=== PATIENT | female | born 1950 | race Caucasian/White ===

== ENCOUNTER 2025-02-23 09:51 | Outpatient (AMB) | payer MEDICARE, SELFPAY ==
--- NOTE | 2025-02-23 09:47 | A.OFFPC_ITS ---
Vital Signs 02/23/25 09:55 Height 5 ft 5.2 in Weight 185 lb 2 oz BMI 30.6 BP 152/84 H Blood Pressure Location Rt brachial Position Sitting Respiration 20 Pulse 59 Pulse Source Pulse Oximeter Temp 96.9 F Temp Source Temporal Artery Scan Pulse Oximetry (%) 97 Oxygen Delivery Method Room Air Intake Visit Reasons: Establish Care Labor Specialist Required: No Accompanied by: Self / Same As Patient Allergies No Known Allergies Allergy (Verified 02/23/25 12:46) Medication List - Last Reconciled 02/23/25 by Shahla Cabral PA-C aspirin 81 mg PO DAILY atorvastatin (Lipitor) 20 mg PO BEDTIME famotidine (Acid Controller) 20 mg PO BID fluoxetine 60 mg PO DAILY hydrochlorothiazide 25 mg PO QAM metformin 250 mg PO BID rivaroxaban (Xarelto) 20 mg PO DAILY Tobacco use date assessed: 02/23/25 Fall risk assessment: No Falls in past year Last assessed Fall Risk: 02/23/25 Dental Screening Dental Screen Date: 02/23/25 Did you have a dental visit in the last 12 months?: Yes Was dental information given to patient?: Patient has dentist HPI Establish Care HPI Details The patient is a 74-year-old female presenting for a new patient appointment, annual physical exam and in addition management of multiple chronic conditions. The patient has a history of deep vein thrombosis (DVT) in the left leg, diagnosed after experiencing left leg swelling. 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 She underwent placement of an inferior vena cava filter, percutaneous mechanical thrombectomy, angioplasty, and stenting of the left common and external iliac vein, and was placed on Xarelto for anticoagulation. The patient reports chronic venous insufficiency in the right lower leg, with no evidence of DVT in the right leg, but superficial reflux was noted in the left leg. She uses knee-high compression stockings for swelling management. The patient has a history of hypertension, hyperlipidemia, and type 2 diabetes mellitus, managed with medications including hydrochlorothiazide, atorvastatin, and metformin. She expresses a desire to discontinue metformin, as her recent A1c was 6.4, indicating prediabetes status while on medication. The patient has iron deficiency anemia, requiring previous blood transfusions and iron infusions. She is scheduled for follow-up with hematology to investigate the cause of her anemia. A heart murmur was detected during the physical examination, and an echocardiogram is planned to further evaluate this finding. Social History - Housing: Lives with her 92-year-old au nt. - Substance Use: Former smoker, quit 25 years ago. PFSH Medical History Iron deficiency anemia Type 2 diabetes mellitus with hemoglobin A1c goal of less than 7.0% Hyperlipidemia Hypertension Chronic venous insufficiency May-Thurner syndrome Pulmonary embolism DVT (deep venous thrombosis) Annual physical exam Heart murmur Smoking history Surgical History History of colonoscopy (~09/23/24) Family History Father Cerebral brain hemorrhage Mother Lung cancer Social History Housing: Other Housing Other:: MOBILE HOME Patient Tobacco Use Status: Former Tobacco user service: No Current occupational status: employed and retired Cognitive needs: No Hearing needs: No Vision needs: Yes (RX glasses) Questionnaire PHQ-9 Over the last 2 weeks, how often have you been bothered by any of the following problems? 1. Little interest or pleasure in doing things: not at all 2. Feeling down, depressed, or hopeless: not at all 3. Trouble falling or staying asleep, or sleeping too much: not at all 4. Feeling tired or having little energy: not at all 5. Poor appetite or overeating: not at all 6. Feeling bad about yourself - or that you are a failure or have let yourself or your family down: not at all 7. Trouble concentrating on things, such as reading the newspaper or watching television: not at all 8. Moving or speaking so slowly that other people could have noticed. Or the opposite - being so fidgety or restless that you have been moving around a lot more than usual: not at all 9. Thoughts that you would be better off or of hurting yourself in some way: not at all Total score: 0 Depression Screening Interpretation: Negative Depression Screening Done: Yes 73869 - PHQ-9 Billing: Yes Source: Developed by Drs. James Mattson, Kat Celso Naranjo and colleagues, with an educational cal from [employer]. Thrive Questionnaire Date Thrive assessed: 02/23/25 I am a: Patient What is your living situation today?: I have a steady place to live Within the past 12 months, did the food you bought not last and you didn't have the money to get more?: Never true Within the past 12 months, did you worry whether your food would run out before you got money to buy more?: Never true Do you have trouble paying for medicines?: No Do you have trouble getting transportation to medical appointments?: No Do you have trouble paying your heating and electricity bill?: No Do you have trouble taking care of your child, family member or friend?: No Do you have trouble with day-to-day activities such as bathing, preparing meals, shopping, managing finances, etc.?: No Are you currently unemployed and looking for a job?: No Are you interested in more education?: No Please select the resources that you would like help with: None THRIVE Score: 0 AUDIT C Alcohol Use Questionnaire (AUDIT-C) 1. How often do you have a drink containing alcohol?: Never Total Score: 0 Score Reviewed/Action Taken: No PANFILO-7 AMB Questionnaire PANFILO-7 Date PANFILO - 7 assessed: 02/23/25 Feeling nervous, anxious, or on edge: 0 = Not at all Not being able to stop or control worryin = Not at all Worrying too much about different things: 0 = Not at all Trouble relaxin = Not at all Being so restless that it is hard to sit still: 0 = Not at all Becoming easily annoyed or irritable: 0 = Not at all Feeling afraid as if something awful might happen: 0 = Not at all Total PANFILO-7 score (0-4 normal; 5-9 mild; 10-14 moderate; 15-21 severe): 0 Source: Developed by Drs. James Mattson, Celso Schmidt and colleagues, with an educational cal from [employer]. PANFILO-7 Assessment Billing PANFILO-7 Assessment Tool: PANFILO-7 Assessment 09430 Review of Systems Const Details: - Cardiovascular: Reports fainting episodes while walking the dog. Denies chest pain or palpitations. - Musculoskeletal: Reports left leg swelling. Denies right leg swelling or pain. - Neurological: Denies headaches, dizziness, or balance issues. - Gastrointestinal: Denies abdominal pain or changes in bowel habits. - Genitourinary: Denies hematuria or dysuria. All systems reviewed & are unremarkable except as noted in HPI and below Physical exam (Primary Care) Vital Signs: Last Vital Signs Temp 96.9 F 02/23/25 09:55 Pulse 59 02/23/25 09:55 Resp 20 02/23/25 09:55 BP 152/84 H 02/23/25 09:55 Pulse Ox 97 02/23/25 09:55 Oxygen Delivery Method Room Air 02/23/25 09:55 Care Plan Goal for BP management: 140/90 PATIENT TO CONTINUE HYDROCHLOROTHIAZIDE 25 MG DAILY SHE WILL CONTINUE TO MONITOR HER BLOOD PRESSURE AND RETURN IN 1 MONTH FOR BLOOD PRESSURE CHECK BMI result Body Mass Index 30.6 BMI Assessment/Plan discussion: High BMI High, discussed plan: lifestyle, weight reduction, dietary, physical activity, alcohol moderation and other Tobacco/Smoking Status: Tobacco use Status Tobacco use date assessed 02/23/25 02/23/25 10:08 Patient Tobacco Use Status Former Tobacco user 02/23/25 10:08 PHQ-9: PHQ-9 Score PHQ-9: Total score 0 02/23/25 10:31 Depression Screening Interpretation: Negative Thrive Assessment: Date of Thrive Assessment Date Thrive assessed 02/23/25 02/23/25 10:08 Const Other: Appearance: Alert. Oriented X3. No acute distress. Head: Normal external exam. Normocephalic. Atraumatic. Eyes: Pupils are equal, round, and reactive to light. Extraocular movements intact. Conjunctiva and sclera normal. Eyelids normal. Ears: External auditory canal normal. Tympanic membranes normal. Throat: Pharynx normal. Uvula midline. Moist mucous membranes. Neck: Normal inspection. Neck supple. Full range of motion. No adenopathy. Thyroid Normal. No meningeal signs. No neck mass noted. Cardiovascular: Normal heart rate and rhythm. Heart sound normal. A little murmur noted. Pulses normal throughout. Respiratory: No respiratory distress. Painless inspiration. Breath sounds normal. No wheezes/rales/rhonchi noted. Chest nontender. No accessory muscle usage noted or decreased air movement noted. Abdomen: Soft and nontender. Bowel sounds normal in all 4 quadrants. No distention noted. No organomegaly noted. No visible injury noted. Back: No costovertebral angle tenderness. Full range of motion noted. Skin: Skin warm and dry. Normal skin color. Normal skin turgor. No rashes/lesions/lacerations noted. Extremities: No lower extremity edema. Extremities exhibit normal range of motion. Extremities nontender. Neuro: Oriented X 3. No motor deficit. No sensory deficit. Reflexes normal. Office Procedures Flu Questionnaire Does the patient have a severe egg allergy?: No Does the patient have severe life threatening allergies?: No Does the patient have a fever or illness today?: No Has the patient ever had Guillain-Greenwood Syndrome?: No Has the patient ever had any past reaction to a flu shot?: No Results AMB Hemoglobin A1c AMB Hemoglobin A1c 6.4 % Last Edit by Nellie Aburto CMA on 02/23/25 10:3 2 Immunizations Fluarix [id number] (PF) 45 mcg (15 mcg x 3)/0.5 mL IM syringe Performing Provider: Shahla Cabral PA-C Performing [facility] [place] [facility] Administered by: Nellie Aburto CMA on 02/23/25 10:14 Dose Route Admin Location Dispensed Lot Number Expiration Date 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 - Imaging: Ultrasound of the right leg showed no evidence of DVT. - Imaging: Left leg ultrasound showed superficial reflux and chronic DVT within the popliteal vein. Coding Level of Care Code New Pt Level 4 (24149) New Pt Prev Care >65yr (56749) Diagnoses Annual physical exam Z00.00 DVT (deep venous thrombosis) I82.409 Pulmonary embolism I26.99 May-Thurner syndrome I87.1 Chronic venous insufficiency I87.2 Hypertension I10 Hyperlipidemia E78.5 Type 2 diabetes mellitus with hemoglobin A1c goal of less than 7.0% E11.9 Iron deficiency anemia D50.9 Heart murmur R01.1 Additional Codes PHQ-9 - 49931 - PHQ-9 Billing: Yes ([id number]) PANFILO-7 Assessment Billing - PANFILO-7 Assessment Tool: PANFILO-7 Assessment 79084 ([id number]) Time Spent (min) 60 Assessment & Plan Assessment & Plan (1) Annual physical exam: Code(s): Z00.00 - Encounter for general adult medical examination without abnormal findings Category: Medical (2) DVT (deep venous thrombosis): Code(s): I82.409 - Acute embolism and thrombosis of unspecified deep veins of unspecified lower extremity Category: Medical Plan: The patient will continue anticoagulation therapy with Xarelto for at least six months. An IVC filter placement scan is ordered, and follow-up with hematology is scheduled to discuss possible filter removal. (3) Pulmonary embolism: Code(s): I26.99 - Other pulmonary embolism without acute cor pulmonale Category: Medical Plan: The patient is on Xarelto for anticoagulation to manage the pulmonary embolism. Continued monitoring and follow-up with hematology are planned. (4) May-Thurner syndrome: Code(s): I87.1 - Compression of vein Category: Medical Plan: The patient underwent angioplasty and stenting of the left common and external iliac vein. Follow-up care includes monitoring for any recurrence of symptoms and continued use of compression stockings. (5) Chronic venous insufficiency: Code(s): I87.2 - Venous insufficiency (chronic) (peripheral) Category: Medical Plan: The patient is advised to continue using knee-high compression stockings to manage swelling. Regular follow-up is recommended to monitor the condition. (6) Hypertension: Code(s): I10 - Essential (primary) hypertension Category: Medical Plan: The patient will continue on hydrochlorothiazide for blood pressure management. Regular monitoring of blood pressure is advised. (7) Hyperlipidemia: Code(s): E78.5 - Hyperlipidemia, unspecified Category: Medical Plan: The patient is advised to continue atorvastatin for cholesterol management. A discussion with a adjunct psychology faculty member is planned to consider alternative treatments such as Zetia or injectable therapies. (8) Type 2 diabetes mellitus with hemoglobin A1c goal of less than 7.0%: Code(s): E11.9 - Type 2 diabetes mellitus without complications Category: Medical Plan: The patient is advised to reduce metformin to 250 mg daily and monitor blood glucose levels. A follow-up in three months is planned to reassess the need for medication. (9) Iron deficiency anemia: Code(s): D50.9 - Iron deficiency anemia, unspecified Category: Medical Plan: The patient is scheduled for follow-up with hematology to investigate the cause of anemia. Iron supplementation and monitoring of hemoglobin levels are recommended. (10) Heart murmur: Code(s): R01.1 - Cardiac murmur, unspecified Category: Medical Plan: An echocardiogram is planned to evaluate the heart murmur further. The patient is advised to monitor for any new symptoms and report them promptly. Plan Plan Patient was informed and verbally consented to the use of an ambient scribe for clinic note documentation during this visit. 1. Deep Vein Thrombosis (Dvt) The patient will continue anticoagulation therapy with Xarelto for at least six months. An IVC filter placement scan is ordered, and follow-up with hematology is scheduled to discuss possible filter removal. 2. Pulmonary Embolism The patient is on Xarelto for anticoagulation to manage the pulmonary embolism. Continued monitoring and follow-up with hematology are planned. 3. May-Thurner Syndrome The patient underwent angioplasty and stenting of the left common and external iliac vein. Follow-up care includes monitoring for any recurrence of symptoms and continued use of compression stockings. 4. Chronic Venous Insufficiency The patient is advised to continue using knee-high compression stockings to manage swelling. Regular follow-up is recommended to monitor the condition. 5. Hypertension The patient will continue on hydrochlorothiazide for blood pressure management. Regular monitoring of blood pressure is advised. 6. Hyperlipidemia The patient is advised to continue atorvastatin for cholesterol management. A discussion with a adjunct psychology faculty member is planned to consider alternative treatments suc h as Zetia or injectable therapies. 7. Type 2 Diabetes Mellitus The patient is advised to reduce metformin to 250 mg daily and monitor blood glucose levels. A follow-up in three months is planned to reassess the need for medication. 8. Iron Deficiency Anemia The patient is scheduled for follow-up with hematology to investigate the cause of anemia. Iron supplementation and monitoring of hemoglobin levels are recommended. 9. Heart Murmur An echocardiogram is planned to evaluate the heart murmur further. The patient is advised to monitor for any new symptoms and report them promptly. During the visit, I discussed with the patient the management of her deep vein thrombosis and pulmonary embolism, emphasizing the importance of continuing Xarelto for anticoagulation. We reviewed the need for an IVC filter placement scan and the potential for filter removal in the future. I explained the role of compression stockings in managing chronic venous insufficiency and the importance of regular follow-up. We also discussed her hypertension and hyperlipidemia management, including the possibility of alternative treatments for cholesterol. I advised on reducing metformin dosage and monitoring her blood glucose levels, with a follow-up planned in three months. We addressed her iron deficiency anemia, scheduling a hematology follow-up to explore the underlying cause. Lastly, I recommended an echocardiogram to evaluate the detected heart murmur and advised her to report any new symptoms. Orders: Orders C Reactive Protein Today Z00.00 - Encounter for general adult medical examination without abnormal findings Complete Blood Count Auto Diff Today Z00.00 - Encounter for general adult medical examination without abnormal findings Ferritin Today D64.9 - Anemia, unspecified Liver Panel Today Z00.00 - Encounter for general adult medical examination without abnormal findings Magnesium Today Z00.00 - Encounter for general adult medical examination without abnormal findings Lipid Panel Today Z00.00 - Encounter for general adult medical examination without abnormal findings Vitamin B12 and Folate Today Z00.00 - Encounter for general adult medical examination without abnormal findings Vitamin D 25-OH Total Today Z00.00 - Encounter for general adult medical examination without abnormal findings UA CC w/rflx Micro + Cult Today Z00.00 - Encounter for general adult medical examination without abnormal findings TSH reflex Free T4 Today Z00.00 - Encounter for general adult medical examination without abnormal findings CA echo transthoracic complete Today R01.1 - Cardiac murmur, unspecified Influenza [id number] Immunization Today Z23 - Encounter for immunization AMB Hemoglobin A1c Today Z13.9 - Encounter for screening, unspecified Comprehensive Wright. Panel Fast Today Z00.00 - Encounter for general adult medical examination without abnormal findings IRON PROFILE Today D64.9 - Anemia, unspecified XR DEXA axial skeleton Today M81.0 - Age-related osteoporosis without current pathological fracture Referrals Lung Cancer Screening Referral Z87.891 - Personal history of nicotine dependence Patient Instructions: - Continue taking Xarelto as prescribed for anticoagulation. - Use knee-high compression stockings to manage leg swelling. - Monitor blood pressure regularly and report any significant changes. - Reduce metformin to 250 mg daily and monitor blood glucose levels. - Schedule and attend follow-up appointments with hematology and cardiology as advised. - Report any new symptoms, especially related to heart or leg issues, promptly.
[2025-02-23 09:55] VITALS: BP 152/84; PULSE 59; RESP 20; TEMP 36.1; O2SAT 97; BMI 30.6
== END 2025-02-23 10:48 | disposition home or self-care (01) ==
LOC: HO.HMCSH 09:51
PROVIDERS: PCP Physician Assistant Medical; Visit Provider Physician Assistant Medical
DX: Z00.00 Encounter for general adult medical examination without abnormal findings (principal); R01.1 Cardiac murmur, unspecified; I82.409 Acute embolism and thrombosis of unspecified deep veins of unspecified lower extremity; I26.99 Other pulmonary embolism without acute cor pulmonale; E11.69 Type 2 diabetes mellitus with other specified complication; I10 Essential (primary) hypertension; I87.1 Compression of vein; I87.2 Venous insufficiency (chronic) (peripheral); E78.5 Hyperlipidemia, unspecified; D50.9 Iron deficiency anemia, unspecified; Z23 Encounter for immunization

== ENCOUNTER → 2025-02-23 09:51 | Outpatient (BNVA) | payer MEDICARE, SELFPAY | PROVIDERS: PCP Physician Assistant Medical; Visit Provider Physician Assistant Medical | DX: Z00.00 Encounter for general adult medical examination without abnormal findings (principal); I87.2 Venous insufficiency (chronic) (peripheral); I10 Essential (primary) hypertension; E78.5 Hyperlipidemia, unspecified; E11.9 Type 2 diabetes mellitus without complications; D50.9 Iron deficiency anemia, unspecified; R01.1 Cardiac murmur, unspecified; I82.409 Acute embolism and thrombosis of unspecified deep veins of unspecified lower extremity; M81.0 Age-related osteoporosis without current pathological fracture; I26.99 Other pulmonary embolism without acute cor pulmonale; Z23 Encounter for immunization; Z79.84 Long term (current) use of oral hypoglycemic drugs; Z87.891 Personal history of nicotine dependence | CPT/HCPCS: 83036; 90471; 90656; 96127; 99202; 99387 ==

== ENCOUNTER 2025-02-24 08:13 | Outpatient (REF) | payer MEDICARE, SELFPAY ==
[2025-02-24 10:10] LABS: MANUAL DIFF FLAG NO
[2025-02-24 10:15] LABS: Appearance Urine Clear; Glucose Urine UA Negative (Negative); PH 6.5 (5.0-9.0); Specific Gravity - Urine 1.015 (1.005-1.025); UMIC TRIGGER UACC YES
[2025-02-24 10:29] LABS: Hematocrit 40.7 % (37.0-47.0); Hemoglobin 13.1 g/dl (12.0-16.0); Imm Gran Abs Auto 0.01 X10*3/uL (0.00-0.03); Imm Gran Pct Auto 0.2 % (0.0-0.4); Lymphocytes Absolute Auto 2.0 X10*3/uL (1.2-4.9); Mean Corpuscular HGB Conc 32.2 g/dl (31.0-35.0); Mean Corpuscular Hemoglobin 26.8 pg (27.0-33.0); Mean Corpuscular Volume 83.2 fL (80.0-98.0); NRBC Abs Auto 0.000 X10*3/uL (0.0-0.012); NRBC Pct Auto 0.0 /100WBC (0.0-0.2); Platelet Count 287 X10*3/uL (160-400); Red Blood Count 4.89 X10*6/uL (4.20-5.50); White Blood Count 6.1 X10*3/uL (4.8-10.8)
[2025-02-24 10:49] LABS: Alanine Aminotransferase 11 U/L (0-31); Albumin Level 4.2 g/dL (3.5-5.0); Alkaline Phosphatase 88 U/L (39-117); Anion Gap 12 (12-20); Aspartate Amino Transferase 23 U/L (5-31); Blood Urea Nitrogen 14 mg/dL (9-16); Calcium 9.6 mg/dL (8.4-10.2); Carbon Dioxide 29 mmol/L (22-29); Chloride 105 mmol/L (96-108); Cholesterol 229 mg/dL (<200); Estimated Glomerular Filt Rate > 60; HDL Cholesterol 68 mg/dL (>40); Iron 62 mcg/dL (30-160); Magnesium 2.2 mg/dL (1.6-2.6); Percent Iron Saturation 24 % (15-50); Potassium 4.2 mmol/L (3.3-5.1); Sodium 142 mmol/L (135-145); Total Iron Binding Capacity 255 mcg/dL (228-428); Total Protein 6.9 g/dL (6.5-8.0); Triglycerides 305 mg/dL (<150); Unsaturated Iron Binding 193 ug/dL
[2025-02-24 11:09] LABS: Folate 7.7 ng/mL (> or = 4.0); Vitamin B12 164 pg/mL (200-900)
[2025-02-24 11:19] LABS: Ferritin 32 ng/mL (10-250)
== END 2025-02-24 08:14 | disposition home or self-care (01) ==
LOC: HO.HMGCLDS 08:13
PROVIDERS: PCP Physician Assistant Medical; Visit Provider Physician Assistant Medical
DX: Z00.00 Encounter for general adult medical examination without abnormal findings (principal); D64.9 Anemia, unspecified; Z13.6 Encounter for screening for cardiovascular disorders
CPT/HCPCS: 36415; 80053; 80061; 80076; 81001; 82248; 82306; 82607; 82728; 82746; 83540; 83735; 84443; 85025; 86140

== ENCOUNTER 2025-03-28 10:09 | Outpatient (AMB) | payer MEDICARE, SELFPAY ==
--- NOTE | 2025-03-28 11:38 | MHC.PC.OV ---
Vital Signs 03/28/25 11:46 Height 5 ft 5.2 in Weight 182 lb BMI 30.1 BP 162/92 H Blood Pressure Location Lt brachial Position Sitting Respiration 14 Pulse 62 Pulse Source Monitor Temp 97.8 F Temp Source Temporal Artery Scan Pulse Oximetry (%) 97 Oxygen Delivery Method Room Air Intake Visit Reasons: 1m Follow up Allergies No Known Allergies Allergy (Verified 03/28/25 11:48) Medication List - Last Reconciled 03/28/25 by Shahla Cabral PA-C aspirin 81 mg PO DAILY atorvastatin (Lipitor) 20 mg PO BEDTIME evolocumab (Repatha SureClick) 420 mg (3 mL) subcut QMONTH 3 months ezetimibe (Zetia) 10 mg PO DAILY famotidine (Acid Controller) 20 mg PO BID fenofibrate nanocrystallized 48 mg PO DAILY fluoxetine 60 mg PO DAILY hydrochlorothiazide 50 mg PO QAM metformin 250 mg PO DAILY rivaroxaban (Xarelto) 20 mg PO DAILY Tobacco use date assessed: 02/23/25 Dental Screening Dental Screen Date: 02/23/25 HPI 1m Follow up HPI Details The patient is a 74-year-old female presenting to the primary care clinic for a followup visit. Her past medical history is significant for May-Thurner syndrome, deep vein thrombosis, pulmonary embolism, chronic venous insufficiency, hypertension, hyperlipidemia, type 2 diabetes, iron deficiency anemia, and a heart murmur. Regarding her vascular history, she has an appointment with a vascular surgeon today at [facility], [place]. She recently had a DVT study and a CTA of her chest, which was suboptimal, but her IVC filter and stent appear within normal limits. 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 For her hyperlipidemia, recent labs show triglycerides of 305, total cholesterol of 120, and an LDL of 100. She is prescribed Lipitor, and Zetia, which was started at her last visit. The patient reports she is not fully compliant with atorvastatin, taking half a tablet every other night instead of as prescribed. Her last hemoglobin A1c on 02/23/2025 was 6.4%, and she takes metformin 250 mg daily for type 2 diabetes. She has iron deficiency anemia managed with iron infusions every couple of months and was also found to have a B12 deficiency but does not receive B12 injections. Renal function labs from 03/10/2025 showed a BUN of 60 and creatinine of 0.89, with more recent labs showing improvement with a BUN of 16 and creatinine of 0.71. PFSH Medical History Vitamin B12 deficiency Pure hypercholesterolemia, unspecified Hypertriglyceridemia Iron deficiency anemia Type 2 diabetes mellitus with hemoglobin A1c goal of less than 7.0% Hyperlipidemia Hypertension Chronic venous insufficiency May-Thurner syndrome Pulmonary embolism DVT (deep venous thrombosis) Annual physical exam Heart murmur Smoking history Surgical History History of colonoscopy (~09/23/24) Family History Father Cerebral brain hemorrhage Mother Lung cancer Social History Housing: Other Housing Other:: MOBILE HOME Patient Tobacco Use Status: Former Tobacco user service: No Current occupational status: employed and retired Cognitive needs: No Hearing needs: No Vision needs: Yes (RX glasses) Questionnaire Thrive Questionnaire Date Thrive assessed: 02/23/25 PANFILO-7 AMB Questionnaire PANFILO-7 Date PANFILO - 7 assessed: 02/23/25 Source: Developed by Drs. James Mattson, Kat Donaldson, Celso Zapien and colleagues, with an educational cal from [employer]. Review of Systems Const Details: - General: Denies any acute complaints. - Allergic/Immunologic: Patient denies any abnormal side effects from Zetia. All systems reviewed & are unremarkable except as noted in HPI and below Physical exam (Primary Care) Care Plan Goal for BP management: <140/90 will increase hydrochlorothiazide from 25 mg to 50 mg daily BMI Assessment/Plan discussion: High BMI High, discussed plan: lifestyle, weight reduction, dietary, physical activity, alcohol moderation and other Tobacco/Smoking Status: Tobacco use Status Tobacco use date assessed 02/23/25 02/23/25 10:47 Patient Tobacco Use Status Former Tobacco user 02/23/25 10:47 Thrive Assessment: Date of Thrive Assessment Date Thrive assessed 02/23/25 02/23/25 10:47 Const Other: Appearance: Alert. Oriented X3. No acute distress. Head: Normal external exam. Normocephalic. Atraumatic. Eyes: Pupils are equal, round, and reactive to light. Extraocular movements intact. Conjunctiva and sclera normal. Eyelids normal. Throat: Pharynx normal. Uvula midline. Moist mucous membranes. Neck: Normal inspection. Neck supple. Full range of motion. Cardiovascular: Heart murmur present. Normal heart rate and rhythm. Heart sound normal. Pulses normal throughout. Respiratory: No respiratory distress. Painless inspiration. Breath sounds normal. No wheezes/rales/rhonchi noted. Chest nontender. No accessory muscle usage noted or decreased air movement noted. Back: Full range of motion noted. Skin: Skin warm and dry. Normal skin color. Normal skin turgor. No rashes/lesions/lacerations noted. Extremities: No lower extremity edema. Chronic nonocclusive DVTs of the right and left lower extremity noted. Extremities exhibit normal range of motion Office Meds cyanocobalamin (vitamin B-12) 1,000 mcg/mL injection solution Performing Provider: Shahla Cabral PA-C [place] [facility] [facility] [place] [facility] [place] [facility] Administered by: Shahla Cabral PA-C on 03/28/25 11:54 Dose Route Admin Location Dispensed Lot Number Expiration Date [employer] 1,000 mcg IM 1 mL Total Dispensed Waste 1 mL 0 % Results Reviewed Results Reviewed: - Labs: - Triglycerides: 305 mg/dL - Total cholesterol: 120 mg/dL - LDL: 100 mg/dL - Hemoglobin A1c (02/23/2025): 6.4% - Renal function panel (03/10/2025): BUN 60 mg/dL, creatinine 0.89 mg/dL, GFR 69. - Renal function panel (recent): BUN 16 mg/dL, creatinine 0.71 mg/dL, GFR 91. - Vitamin B12: Deficiency noted (value not specified). - Imaging: - CTA of the chest: Suboptimal, although the filter and stent appear to be within normal limits. - Ultrasound of bilateral lower extremities: Revealed known chronic nonocclusive DVTs of the right and left lower extremities. Coding Level of Care Code Est Pt Level 4 (96201) Complex EM visit Add On G2211 Diagnoses Hypertension I10 Hyperlipidemia E78.5 Vitamin B12 deficiency E53.8 Type 2 diabetes mellitus with hemoglobin A1c goal of less than 7.0% E11.9 May-Thurner syndrome I87.1 DVT (deep venous thrombosis) I82.409 Iron deficiency anemia D50.9 Time Spent (min) 60 Assessment & Plan Assessment & Plan (1) Hypertension: Code(s): I10 - Essential (primary) hypertension Category: Medical Plan: The patient's blood pressure was elevated at 162/92 mmHg today. Her hydrochlorothiazide will be increased from 25 mg to 50 mg daily. She will return in one month for a blood pressure check. (2) Hyperlipidemia: Code(s): E78.5 - Hyperlipidemia, unspecified Category: Medical Plan: The patient's recent labs show triglycerides of 305 mg/dL and LDL of 100 mg/dL. She was counseled on the goals of LDL less than 70 mg/dL and triglycerides less than 150 mg/dL. The importance of adherence to her medications, including Lipitor and Zetia, was emphasized due to her extensive cardiovascular disease. (3) Vitamin B12 deficiency: Code(s): E53.8 - Deficiency of other specified B group vitamins Category: Medical Plan: A B12 deficiency was noted. The patient received a 1 mL B12 injection today and will be started on a course of injections. She will return monthly for the next 3 months for injections, after which transitioning to oral B12 will be considered. (4) Type 2 diabetes mellitus with hemoglobin A1c goal of less than 7.0%: Code(s): E11.9 - Type 2 diabetes mellitus without complications Category: Medical Plan: The patient's recent hemoglobin A1c was 6.4%. She will continue metformin 250 mg daily. (5) May-Thurner syndrome: Code(s): I87.1 - Compression of vein Category: Medical Plan: The patient's recent imaging showed known chronic nonocclusive DVTs. The importance of taking Xarelto was emphasized. She has an appointment with her vascular surgeon, Bettye Donaldson, today for further management. (6) DVT (deep venous thrombosis): Code(s): I82.409 - Acute embolism and thrombosis of unspecified deep veins of unspecified lower extremity Category: Medical Plan: The patient's recent imaging showed known chronic nonocclusive DVTs. The importance of taking Xarelto was emphasized. She has an appointment with her vascular surgeon, Bettye Donaldson, today for further management. (7) Iron deficiency anemia: Code(s): D50.9 - Iron deficiency anemia, unspecified Category: Medical Plan: The patient reports receiving iron infusions every couple of months. No changes were made to this management plan. Plan Plan Patient was informed and verbally consented to the use of an ambient scribe for clinic note documentation during this visit. 1. Hypertension The patient's blood pressure was elevated at 162/92 mmHg today. Her hydrochlorothiazide will be increased from 25 mg to 50 mg daily. She will return in one month for a blood pressure check. 2. Hyperlipidemia The patient's recent labs show triglycerides of 305 mg/dL and LDL of 100 mg/dL. She was counseled on the goals of LDL less than 70 mg/dL and triglycerides less than 150 mg/dL. The importance of adherence to her medications, including Lipitor and Zetia, was emphasized due to her extensive cardiovascular disease. 3. Vitamin B12 Deficiency A B12 deficiency was noted. The patient received a 1 mL B12 injection today and will be started on a course of injections. She will return monthly for the next 3 months for injections, after which transitioning to oral B12 will be considered. 4. Type 2 Diabetes Mellitus The patient's recent hemoglobin A1c was 6.4%. She will continue metformin 250 mg daily. 5. History Of May-Thurner Syndrome, Dvt, And Pe The patient's recent imaging showed known chronic nonocclusive DVTs. The importance of taking Xarelto was emphasized. She has an appointment with her vascular surgeon, Bettye Donaldson, today for further management. 6. Iron Deficiency Anemia The patient reports receiving iron infusions every couple of months. No changes were made to this management plan. I discussed the patient's lab results with her, noting that her triglycerides and LDL are above goal at 305 and 100, respectively. I explained that we would want her LDL below 70 and triglycerides below 150. Due to her extensive cardiovascular disease history, I emphasized the importance of adhering to her prescribed medications, including aspirin, Lipitor, Zetia, and Xarelto. We reviewed her elevated blood pressure reading of 162/92, and I informed her that we will increase her hydrochlorothiazide dose from 25 mg to 50 mg. I also discussed her B12 deficiency and the plan to initiate monthly B12 injections for three months before re-assessing for a transition to oral supplements. We noted her hemoglobin A1c of 6.4% is at goal, and she will continue her current metformin dose. She received her first B12 injection today and understands the plan to return in one month for a blood pressure check and her next injection. Orders: Orders AMB Vitamin B12 Injection Patient Supplied Today D50.9 - Iron deficiency anemia, unspecified, E53.8 - Deficiency of other specified B group vitamins Medications: New evolocumab (Repatha SureRajivick) 420 mg (3 mL) subcut QMONTH 9 mL 3RF 3 months E11.9 - Type 2 diabetes mellitus without complications, E78.5 - Hyperlipidemia, unspecified, I10 - Essential (primary) hypertension, I26.99 - Other pulmonary embolism without acute cor pulmonale, I82.409 - Acute embolism and thrombosis of unspecified deep veins of unspecified lower extremity, I87.1 - Compression of vein, I87.2 - Venous insufficiency (chronic) (peripheral), R01.1 - Cardiac murmur, unspecified, Z87.891 - Personal history of nicotine dependence fenofibrate nanocrystallized 48 mg PO DAILY 90 tabs 3RF E78.00 - Pure hypercholesterolemia, unspecified, E78.1 - Pure hyperglyceridemia, E78.5 - Hyperlipidemia, unspecified, I87.1 - Compression of vein, I87.2 - Venous insufficiency (chronic) (peripheral) Changed From hydrochlorothiazide 25 mg PO QAM To hydrochlorothiazide 50 mg PO QAM 90 tabs 3RF Patient Instructions: - Your blood pressure was high today, so we are increasing your water pill (hydrochlorothiazide) from 25 mg to 50 mg per day. - It is very important to take all your medications as prescribed, especially your Lipitor, Zetia, Xarelto, and aspirin, to protect your heart and blood vessels. - We noted you have a vitamin B12 deficiency and gave you your first B12 shot today. - You will need to return to the clinic once a month for the next three months to get another B12 shot. - Your diabetes is well-controlled, so please continue taking your metformin as you have been. - Please come back to the clinic in one month for a blood pressure check and your next B12 shot. - Make sure to go to your appointment with the vascular surgeon today.
[2025-03-28 11:46] VITALS: BP 162/92; PULSE 62; RESP 14; TEMP 36.6; O2SAT 97; BMI 30.1
== END 2025-03-28 11:13 | disposition home or self-care (01) ==
LOC: HO.HMCSH 10:09
PROVIDERS: PCP Physician Assistant Medical; Visit Provider Physician Assistant Medical
DX: I10 Essential (primary) hypertension (principal); E78.5 Hyperlipidemia, unspecified; E53.8 Deficiency of other specified B group vitamins; E11.9 Type 2 diabetes mellitus without complications; I87.1 Compression of vein; I82.409 Acute embolism and thrombosis of unspecified deep veins of unspecified lower extremity; D50.9 Iron deficiency anemia, unspecified

== ENCOUNTER → 2025-03-28 10:09 | Outpatient (BNVA) | payer MEDICARE, SELFPAY | PROVIDERS: PCP Physician Assistant Medical; Visit Provider Physician Assistant Medical | DX: I10 Essential (primary) hypertension (principal); E78.5 Hyperlipidemia, unspecified; E11.9 Type 2 diabetes mellitus without complications; E53.8 Deficiency of other specified B group vitamins; I87.1 Compression of vein; I82.409 Acute embolism and thrombosis of unspecified deep veins of unspecified lower extremity; D50.9 Iron deficiency anemia, unspecified; Z79.84 Long term (current) use of oral hypoglycemic drugs; Z86.711 Personal history of pulmonary embolism | CPT/HCPCS: 96372; 99212; J3420 ==

== ENCOUNTER → 2025-04-07 07:57 | Outpatient (REF) | payer MEDICARE, SELFPAY ==
--- NOTE | 2025-04-07 08:00 | CA_ITS ---
Transthoracic Echocardiogram Patient (Last, First, Middle): Opal Lord, Gender: F Date of : 1950 Age: 74 Procedure Date: 04/07/2025 Procedure Type: Transthoracic Echocardiogram Location: OP Height: 167.64 cm Weight: 82.56 kg BSA: 1.92 m2 Heart Rate: 55 bpm BP: 158 / 70 mmHg Accreditation Specialist: NINI Referring MD: Shahla Cabral PA-C [employer]ic Structures: Gary Louie MD Symptoms: R01.1 - Cardiac murmur, unspecified Study Quality: Adequate ECG Rhythm: Bradycardia Conclusions: - 1. Normal LV ejection fraction of 60-65% with grade 2 diastolic dysfunction with mild left ventricular hypertrophy 2. Calcific aortic and mitral valve changes noted with normal cardiac valvular Dopplers 3. No gross pericardial effusion Findings Left Ventricle Normal left ventricular size and systolic function. There is mildly increased left ventricular wall thickness. The visually estimated ejection fraction is between 60-65%. Spectral Doppler is indicative of a pseudonormal filling pattern. E/E prime ratio is >15, consistent with elevated filling pressures. Evidence suggests grade II (moderate) diastolic dysfunction. Wall Motion Rest Echo Findings The basal inferoseptal segment is hypokinetic. The basal inferior segment is akinetic. All other scored wall segments showed normal motion. Right Ventricle Normal right ventricular cavity size and systolic function. Atria The left atrium is normal in size. There is no evidence of interatrial shunt. The right atrium is normal in size. Aortic Valve There is mild calcification of the aortic valve. There is no aortic valve stenosis. The peak aortic gradient is 9 mmHg.The mean gradient is 6 mmHg. The aortic valve area is 2.63 cm2. There is no aortic valve regurgitation. Mitral Valve There is mild anterior and posterior mitral leaflet thickening. There is mild mitral annular calcification. There is trace mitral valve regurgitation. There is no mitral valve stenosis. Pulmonic Valve The pulmonic valve is likely normal. There is trace pulmonic valve regurgitation. Tricuspid Valve Likely normal tricuspid valve structure and function. Tricuspid regurgitation envelope is inadequate for calculation of right ventricular systolic pressure. Normal right atrial pressure. Great Vessels The pulmonary artery was not well visualized. There is no dilatation of the ascending aorta measuring 3.50 cm. Small plaque is seen in the sino tubular ridge. Venous The inferior vena cava is normal in size and collapses greater than 50% with inspiration. Pericardium/Pleural There is no evidence of pericardial effusion. Prior Study Comparison No prior study available for comparison. Measurements 2D Linear Measurements IVSd: 1.22 0.6-0.9/0.6-1.0 cm LVIDd: 4.87 3.9-5.3/4.2-5.9 cm LVIDd Index: 2.54 2.4-3.2/2.2-3.1 cm/m2 LVIDs: 2.57 2.0-3.6 cm LVPWd: 1.30 0.7-1.1 cm LA Diam: 4.00 2.7-3.8/3.0-4.0 cm LAIDs Index: 2.08 1.5-2.3 cm/m2 LV Mass: 299.61 67-162/88-224 g LV Mass Index: 156.04 43-95/49-115 g/m2 LVOT Diam: 2.30 3.0+(-)1.3 cm 2D Systolic Function EF 4C: 59.00 >55% EF 2C: 63.20 >55% EF BiP: 60.50 >55% Mitral Valve MV Pk E: 0.91 MV PK A: 0.88 MV Decel Time: 222.00 E/A: 1.00 E'Lateral: 5.98 E'Medial: 3.70 E/E' Med: 24.50 E/E' Lat: 15.20 PHT: 65.00 MVA PHT: 3.38 Decel Burt: 4.09 Aortic Valve AoV Pk Keith: 1.53 AoV Mn Keith: 1.11 AoV VTI: 0.38 AoV Pk Grad: 9.00 Aov Mn Grad: 6.00 JANELLE Cont.VTI: 2.63 LVOT LVOT Pk Keith: 0.97 LVOT Mn Keith: 0.70 LVOT VTI: 0.24 LVOT Pk Grad: 4.00 LVOT Mn Grad: 2.00 LVOT Diam: 2.30 LVOT Area: 4.15 Diastolic Function MV Pk E: 0.91 MV Pk A: 0.88 E/A: 1.00 E'Medial: 3.70 E/E' Med: 24.50 E' Laterial: 5.98 E/E' Lat: 15.20 Right Ventricle TAPSE (mm): 24.20 TVS' Keith: 13.70 Tricuspid Valve RA Press: 3.00 Great Vessels Aorta Sinus of Valsalva: 3.70 2.0-3.5 cm Ao Asc: 3.50 2.1-3.4 cm Ao Arch: 2.80 Pulmonary Veins Pulm Vein S/D 1.10 Pulmonary Valve PV Pk Keith: 0.83 Peak PV Grad: 3.00 Updated in Other Vendor System with Status of Final Gary Louie MD electronically signed on 04/07/2025 4:20:25 PM with status of Final
== END ==
LOC: HO.CARD 07:57
PROVIDERS: PCP Physician Assistant Medical; Visit Provider Physician Assistant Medical
DX: R01.1 Cardiac murmur, unspecified (principal)
CPT/HCPCS: 93306

== ENCOUNTER → 2025-04-07 08:00 | Outpatient (BNV) | payer MEDICARE, SELFPAY | PROVIDERS: PCP Physician Assistant Medical; Visit Provider Internal Medicine Cardiovascular Disease | DX: I35.8 Other nonrheumatic aortic valve disorders (principal); I34.81 Nonrheumatic mitral (valve) annulus calcification; I51.7 Cardiomegaly | CPT/HCPCS: 93306 ==

== ENCOUNTER 2025-04-28 10:40 | Outpatient (AMB) | payer MEDICARE, SELFPAY ==
[2025-04-28 10:48] VITALS: BP 144/63; PULSE 66; RESP 14; TEMP 36.4; O2SAT 98; BMI 30.8
--- NOTE | 2025-04-28 10:48 | MHC.PC.OV ---
Vital Signs 04/28/25 10:48 04/28/25 11:38 Height 5 ft 5.2 in Weight 186 lb BMI 30.8 BP 144/63 H 139/63 Blood Pressure Location Rt brachial Rt brachial Position Sitting Sitting Respiration 14 Pulse 66 59 Pulse Source Pulse Oximeter Temp 97.6 F Temp Source Temporal Artery Scan Pulse Oximetry (%) 98 Oxygen Delivery Method Room Air Intake Visit Reasons: 1 Month follow up Countersinker Balance Screw Hole Required: No Allergies No Known Allergies Allergy (Verified 04/28/25 11:44) Medication List - Last Reconciled 04/28/25 by Shahla Cabral PA-C aspirin 81 mg PO DAILY atorvastatin (Lipitor) 20 mg PO BEDTIME dulaglutide (Trulicity) 4.5 mg (0.5 mL) subcut QWEEK evolocumab (Repatha SureClick) 420 mg (3 mL) subcut QMONTH 3 months ezetimibe (Zetia) 10 mg PO DAILY famotidine (Acid Controller) 20 mg PO BID fenofibrate nanocrystallized 48 mg PO DAILY fluoxetine 60 mg PO DAILY hydrochlorothiazide 50 mg PO QAM metformin 250 mg PO DAILY rivaroxaban (Xarelto) 20 mg PO DAILY Tobacco use date assessed: 04/28/25 Dental Screening Dental Screen Date: 02/23/25 HPI HPI Comments History of Present Illness Details History of Present Illness The patient is a 74-year-old female presenting for a vitamin B12 injection and blood pressure management. She has a history of hypertension for which she has been taking hydrochlorothiazide for approximately 40 years, with a recent dose increase to 50 mg. She has not been monitoring her blood pressure at home but denies symptoms such as headaches or dizziness. The patient has a history of type 2 diabetes mellitus with a recent HbA1c of 6.4% in February. Her medication regimen includes Trulicity 4.5 mg weekly and metformin 250 mg daily. She has been receiving Trulicity for free through a patient assistance program, but this is set to . The patient has a history of iron deficiency anemia and receives iron infusions; she completed her third infusion a few weeks ago and is scheduled for follow-up blood work in three months. She also has vitamin B12 deficiency, with a prior level of 164, and presented for an injection today. Regarding her cardiovascular history, she has non-occlusive chronic deep vein thrombosis (DVT) and is on Xarelto. She has an upcoming appointment with her vascular surgeon. She was also referred to cardiology for grade 2 diastolic dysfunction, chronic venous insufficiency, a heart murmur, and May-Thurner syndrome, with a follow-up scheduled for June or July after a recent echocardiogram. Neurologically, the patient had strokes approximately 10 years ago, resulting in residual numbness on her right side, which she describes as a weird, non-painful sensation that is particularly noticeable when lying on that side. She also reports near-falls, which she attributes to imbalance rather than dizziness, and mentions a need to get her balance after standing up. For hyperlipidemia, the patient is taking Lipitor and Zetia. A prescription for Repatha was previously sent due to her reluctance to take a statin, but it was not picked up, possibly due to insurance issues. Social History - Substance Use: The patient mentions that alcohol can be relaxing. - Functional Status: Reports experiencing near-falls and feeling unbalanced, but denies dizziness PFSH Medical History History of stroke Grade II diastolic dysfunction Vitamin B12 deficiency Pure hypercholesterolemia, unspecified Hypertriglyceridemia Iron deficiency anemia Type 2 diabetes mellitus with hemoglobin A1c goal of less than 7.0% Hyperlipidemia Hypertension Chronic venous insufficiency May-Thurner syndrome Pulmonary embolism DVT (deep venous thrombosis) Annual physical exam Heart murmur Smoking history Surgical History History of colonoscopy (~09/23/24) Family History Father Cerebral brain hemorrhage Mother Lung cancer Social History Housing: Other Housing Other:: MOBILE HOME Patient Tobacco Use Status: Former Tobacco user service: No Current occupational status: employed and retired Cognitive needs: No Hearing needs: No Vision needs: Yes (RX glasses) Questionnaire PHQ-9 Over the last 2 weeks, how often have you been bothered by any of the following problems? 1. Little interest or pleasure in doing things: not at all 2. Feeling down, depressed, or hopeless: not at all 3. Trouble falling or staying asleep, or sleeping too much: not at all 4. Feeling tired or having little energy: not at all 5. Poor appetite or overeating: not at all 6. Feeling bad about yourself - or that you are a failure or have let yourself or your family down: not at all 7. Trouble concentrating on things, such as reading the newspaper or watching television: not at all 8. Moving or speaking so slowly that other people could have noticed. Or the opposite - being so fidgety or restless that you have been moving around a lot more than usual: not at all 9. Thoughts that you would be better off or of hurting yourself in some way: not at all Total score: 0 Depression Screening Interpretation: Negative Depression Screening Done: Yes 19750 - PHQ-9 Billing: Yes Source: Developed by Drs. James Mattson, Kat Donaldson, Celso Zapien and colleagues, with an educational cal from [employer]. Thrive Questionnaire Date Thrive assessed: 02/23/25 I am a: Patient What is your living situation today?: I have a steady place to live Within the past 12 months, did the food you bought not last and you didn't have the money to get more?: Never true Within the past 12 months, did you worry whether your food would run out before you got money to buy more?: Never true Do you have trouble paying for medicines?: No Do you have trouble getting transportation to medical appointments?: No Do you have trouble paying your heating and electricity bill?: No Do you have trouble taking care of your child, family member or friend?: No Do you have trouble with day-to-day activities such as bathing, preparing meals, shopping, managing finances, etc.?: No Are you currently unemployed and looking for a job?: No Are you interested in more education?: No Please select the resources that you would like help with: None THRIVE Score: 0 AUDIT C Alcohol Use Questionnaire (AUDIT-C) 1. How often do you have a drink containing alcohol?: Never 3. How often do you have six or more drinks on one occasion?: Never Total Score: 0 Score Reviewed/Action Taken: No PANFILO-7 AMB Questionnaire PANFILO-7 Date PANFILO - 7 assessed: 02/23/25 Feeling nervous, anxious, or on edge: 0 = Not at all Not being able to stop or control worryin = Not at all Worrying too much about different things: 0 = Not at all Trouble relaxin = Not at all Being so restless that it is hard to sit still: 0 = Not at all Becoming easily annoyed or irritable: 0 = Not at all Feeling afraid as if something awful might happen: 0 = Not at all Total PANFILO-7 score (0-4 normal; 5-9 mild; 10-14 moderate; 15-21 severe): 0 Source: Developed by Drs. James Mattson, Kat Donaldson, Celso Zapien and colleagues, with an educational cal from [employer]. PANFILO-7 Assessment Billing PANFILO-7 Assessment Tool: PANFILO-7 Assessment 83917 Review of Systems Narrative Review of Systems - Neurological: Reports near-falls and feeling unbalanced. - Denies headaches or dizziness. - Reports persistent, non-painful numbness on the right side, described as a weird or different sensation. - Denies pain associated with the numbness. - Musculoskeletal: Reports knee issues, possibly related to arthritis, but denies pain. Const All systems reviewed & are unremarkable except as noted in HPI and below Physical exam (Primary Care) Vital Signs: Last Vital Signs Temp 97.6 F 04/28/25 10:48 Pulse 66 04/28/25 10:48 Resp 14 04/28/25 10:48 BP 144/63 H 04/28/25 10:48 Pulse Ox 98 04/28/25 10:48 Oxygen Delivery Method Room Air 04/28/25 10:48 Care Plan Goal for BP management: <140/90 patient will continue hydrochlorothiazide 25 mg daily BMI result Body Mass Index 30.8 BMI Assessment/Plan discussion: High BMI High, discussed plan: lifestyle, weight reduction, dietary, physical activity, alcohol moderation and other Tobacco/Smoking Status: Tobacco use Status Tobacco use date assessed 04/28/25 04/28/25 10:50 Patient Tobacco Use Status Former Tobacco user 04/28/25 10:50 PHQ-9: PHQ-9 Score PHQ-9: Total score 0 04/28/25 11:01 Depression Screening Interpretation: Negative Thrive Assessment: Date of Thrive Assessment Date Thrive assessed 02/23/25 04/28/25 10:50 Narrative Physical Exam Appearance: Alert. Oriented X3. No acute distress. Head: Normal external exam. Normocephalic. Atraumatic. Eyes: Pupils are equal, round, and reactive to light. Extraocular movements intact. Conjunctiva and sclera normal. Eyelids normal. Throat: Pharynx normal. Uvula midline. Moist mucous membranes. Neck: Normal inspection. Neck supple. Full range of motion. Cardiovascular: Heart rate 59 bpm. Normal heart rhythm. Heart sound normal. No murmurs noted. Pulses normal throughout. Respiratory: No respiratory distress. Painless inspiration. Breath sounds normal. No wheezes/rales/rhonchi noted. Chest nontender. No accessory muscle usage noted or decreased air movement noted. Back: Full range of motion noted. Skin: Skin warm and dry. Normal skin color. Normal skin turgor. No rashes/lesions/lacerations noted. Extremities: Extremities exhibit normal range of motion. Extremities nontender. Neuro: Oriented X 3. No motor deficit. Right side numbness noted, likely residual from previous stroke. Balance issues noted, possibly related to previous stroke. Office Meds cyanocobalamin (vitamin B-12) 1,000 mcg/mL injection solution Performing Provider: Shahla Cabral PA-C Per[facility] [place] [facility] Administered by: Shahla Cabral PA-C on 04/28/25 11:46 Dose Route Admin Location Dispensed Lot Number Expiration Date [facility] Consulting Senior Practice Director 1,000 mcg IM Right deltoid 1 mL [id number] 06/25/26 [id number] [facility] Total Dispensed Waste 1 mL 0 % Comments: Patient tolerated procedure well no complications to right deltoid Results Reviewed Results Reviewed: Results - Labs: A prior vitamin B12 level was 164. - An HbA1c in February was 6.4%. - Diagnostics: A recent echocardiogram revealed grade 2 diastolic dysfunction. Coding Level of Care Code Est Pt Level 4 (51221) Complex visit Add On G2211 Diagnoses Hypertension I10 Type 2 diabetes mellitus with hemoglobin A1c goal of less than 7.0% E11.9 Vitamin B12 deficiency E53.8 Iron deficiency anemia D50.9 History of stroke Z86.73 DVT (deep venous thrombosis) I82.409 Grade II diastolic dysfunction I51.89 Hyperlipidemia E78.5 Hypertriglyceridemia E78.1 Pure hypercholesterolemia, unspecified E78.00 Additional Codes PANFILO-7 Assessment Billing - PANFILO-7 Assessment Tool: PANFILO-7 Assessment 84149 ([id number]) PHQ-9 - 78462 - PHQ-9 Billing: Yes ([id number]) Assessment & Plan Assessment & Plan (1) Hypertension: Code(s): I10 - Essential (primary) hypertension Category: Medical Plan: The patient's blood pressure was 139/63 mmHg. She will continue taking hydrochlorothiazide 50 mg. A lab order will be placed to check her potassium, sodium, and kidney function due to the increased dose of her diuretic. She was advised to seek this blood work if she experiences dizziness or cramping. (2) Type 2 diabetes mellitus with hemoglobin A1c goal of less than 7.0%: Code(s): E11.9 - Type 2 diabetes mellitus without complications Category: Medical Plan: The patient's last HbA1c was well-controlled at 6.4%. She will continue her current regimen of Trulicity 4.5 mg weekly and metformin 250 mg daily. A prescription for Trulicity will be sent to her pharmacy to address the expiring supply from her patient assistance program. A urine microalbumin test will be performed today for annual diabetic kidney screening. She is due for her next HbA1c in May but can defer it until June or July. (3) Vitamin B12 deficiency: Code(s): E53.8 - Deficiency of other specified B group vitamins Category: Medical Plan: The patient presented for a vitamin B12 injection due to a previously low level. A 1 mL injection of vitamin B12 was administered during the visit. (4) Iron deficiency anemia: Code(s): D50.9 - Iron deficiency anemia, unspecified Category: Medical Plan: The patient continues to receive iron infusions for her anemia. She recently completed her third infusion and will have follow-up blood work in three months to assess her levels. (5) History of stroke: Code(s): Z86.73 - Personal history of transient ischemic attack (TIA), and cerebral infarction without residual deficits Category: Medical Plan: The patient reports residual numbness on her right side following a stroke 10 years ago. Gabapentin was discussed as a treatment option for the altered sensation, but she declined taking additional medication. A referral to neurology for further evaluation and possible nerve testing was offered, but the patient deferred this for now. (6) DVT (deep venous thrombosis): Code(s): I82.409 - Acute embolism and thrombosis of unspecified deep veins of unspecified lower extremity Category: Medical Plan: The patient will continue taking Xarelto for non-occlusive chronic DVTs. She has an upcoming appointment with her vascular surgeon for follow-up. (7) Grade II diastolic dysfunction: Code(s): I51.89 - Other ill-defined heart diseases Category: Medical Plan: The patient has a diagnosis of grade 2 diastolic dysfunction, chronic venous insufficiency, a heart murmur, and May-Thurner syndrome. She has a cardiology follow-up scheduled for June or July to discuss her recent echocardiogram results. (8) Hyperlipidemia: Code(s): E78.5 - Hyperlipidemia, unspecified Category: Medical Plan: The patient will continue taking Lipitor and Zetia. A prescription for Repatha will be re-sent to her pharmacy to try as an alternative to statins. She was instructed to send a message if the prescription for Repatha is not available or approved. (9) Hypertriglyceridemia: Code(s): E78.1 - Pure hyperglyceridemia Category: Medical Plan: The patient will continue taking Lipitor and Zetia. A prescription for Repatha will be re-sent to her pharmacy to try as an alternative to statins. She was instructed to send a message if the prescription for Repatha is not available or approved. (10) Pure hypercholesterolemia, unspecified: Code(s): E78.00 - Pure hypercholesterolemia, unspecified Category: Medical Plan: The patient will continue taking Lipitor and Zetia. A prescription for Repatha will be re-sent to her pharmacy to try as an alternative to statins. She was instructed to send a message if the prescription for Repatha is not available or approved. Plan Plan Patient was informed and verbally consented to the use of an ambient scribe for clinic note documentation during this visit. 1. Hypertension The patient's blood pressure was 139/63 mmHg. She will continue taking hydrochlorothiazide 50 mg. A lab order will be placed to check her potassium, sodium, and kidney function due to the increased dose of her diuretic. She was advised to seek this blood work if she experiences dizziness or cramping. 2. Type 2 Diabetes Mellitus The patient's last HbA1c was well-controlled at 6.4%. She will continue her current regimen of Trulicity 4.5 mg weekly and metformin 250 mg daily. A prescription for Trulicity will be sent to her pharmacy to address the expiring supply from her patient assistance program. A urine microalbumin test will be performed today for annual diabetic kidney screening. She is due for her next HbA1c in May but can defer it until June or July. 3. Vitamin B12 Deficiency The patient presented for a vitamin B12 injection due to a previously low level. A 1 mL injection of vitamin B12 was administered during the visit. 4. Iron Deficiency Anemia The patient continues to receive iron infusions for her anemia. She recently completed her third infusion and will have follow-up blood work in three months to assess her levels. 5. Mixed Hyperlipidemia The patient will continue taking Lipitor and Zetia. A prescription for Repatha will be re-sent to her pharmacy to try as an alternative to statins. She was instructed to send a message if the prescription for Repatha is not available or approved. 6. History Of Stroke The patient reports residual numbness on her right side following a stroke 10 years ago. Gabapentin was discussed as a treatment option for the altered sensation, but she declined taking additional medication. A referral to neurology for further evaluation and possible nerve testing was offered, but the patient deferred this for now. 7. Chronic Deep Vein Thrombosis (Dvt) The patient will continue taking Xarelto for non-occlusive chronic DVTs. She has an upcoming appointment with her vascular surgeon for follow-up. 8. Follow-Up For Cardiovascular Conditions The patient has a diagnosis of grade 2 diastolic dysfunction, chronic venous insufficiency, a heart murmur, and May-Thurner syndrome. She has a cardiology follow-up scheduled for June or July to discuss her recent echocardiogram results. 9. Follow-Up Care A three-month follow-up visit was scheduled. Discussion Notes I advised the patient that we would continue her current dose of hydrochlorothiazide 50 mg for her blood pressure. I explained the need for follow-up blood work to monitor her electrolytes and kidney function given the recent dose increase and placed an order for this. We reviewed her excellent recent HbA1c of 6.4%, and I confirmed that she should continue Trulicity and metformin. I will send a new prescription for Trulicity to her pharmacy to ensure there is no lapse in therapy as her supply from the [employer] program is ending. I also discussed trying to re-send the prescription for Repatha for her hyperlipidemia. I administered a vitamin B12 injection for her deficiency. I discussed her residual numbness and balance issues post-stroke and offered a referral to neurology, which she deferred at this time. We discussed that she will see her vascular surgeon and country printer for follow-up. I recommended she provide a urine sample today for a microalbumin test and return for a follow-up visit in three months. Orders: Orders Basic Metabolic Panel Today Z00.00 - Encounter for general adult medical examination without abnormal findings Microalbumin, Random (w Creat) Today E11.9 - Type 2 diabetes mellitus without complications AMB Vitamin B12 Injection Patient Supplied Today E53.8 - Deficiency of other specified B group vitamins Medications: New dulaglutide (Trulicity) 4.5 mg (0.5 mL) subcut QWEEK 2 mL 3RF E11.9 - Type 2 diabetes mellitus without complications dulaglutide (Trulicity) 4.5 mg (0.5 mL) subcut QWEEK 2 mL 3RF E11.9 - Type 2 diabetes mellitus without complications Refilled evolocumab (Repatha SureClick) 420 mg (3 mL) subcut QMONTH 9 mL 3RF 3 months E11.9 - Type 2 diabetes mellitus without complications, E78.5 - Hyperlipidemia, unspecified, I10 - Essential (primary) hypertension, I26.99 - Other pulmonary embolism without acute cor pulmonale, I82.409 - Acute embolism and thrombosis of unspecified deep veins of unspecified lower extremity, I87.1 - Compression of vein, I87.2 - Venous insufficiency (chronic) (peripheral), R01.1 - Cardiac murmur, unspecified, Z87.891 - Personal history of nicotine dependence Patient Instructions: Patient Instructions - Continue taking your blood pressure medicine, hydrochlorothiazide 50 mg, as prescribed. - Please go to the lab for blood work to check your kidney function and electrolyte levels. - If you feel dizzy or have muscle cramps, get your blood work done. - You received a vitamin B12 shot today. - Continue your diabetes medications, Trulicity and metformin. - We will send a new prescription for your Trulicity. - Please provide a urine sample before you leave today to check your kidney health related to diabetes. - Continue taking Lipitor and Zetia for cholesterol. - We will try to send a prescription for a cholesterol injection called Jamie again. - Please let us know if you have trouble getting it at the pharmacy. - You have upcoming appointments with your blood vessel doctor (vascular surgeon) and heart doctor (country printer). - Please schedule a follow-up appointment here in three months.
[2025-04-28 11:38] VITALS: BP 139/63; PULSE 59
== END 2025-04-28 11:28 | disposition home or self-care (01) ==
LOC: HO.HMCSH 10:40
PROVIDERS: PCP Physician Assistant Medical; Visit Provider Physician Assistant Medical
DX: I10 Essential (primary) hypertension (principal); E11.9 Type 2 diabetes mellitus without complications; E53.8 Deficiency of other specified B group vitamins; D50.9 Iron deficiency anemia, unspecified; Z86.73 Personal history of transient ischemic attack (TIA), and cerebral infarction without residual deficits; I82.409 Acute embolism and thrombosis of unspecified deep veins of unspecified lower extremity; I51.89 Other ill-defined heart diseases; E78.5 Hyperlipidemia, unspecified; E78.1 Pure hyperglyceridemia; E78.00 Pure hypercholesterolemia, unspecified

== ENCOUNTER 2025-04-28 10:40 | Outpatient (REF) | payer MEDICARE, SELFPAY ==
[2025-04-28 19:16] LABS: Microalbum/Creatinine Ratio Ur 15.9 ug/mg cr (<30)
== END 2025-04-28 10:41 | disposition home or self-care (01) ==
LOC: HO.LAB 10:40
PROVIDERS: PCP Physician Assistant Medical; Visit Provider Physician Assistant Medical
DX: E11.9 Type 2 diabetes mellitus without complications (principal); I10 Essential (primary) hypertension; E53.8 Deficiency of other specified B group vitamins; D50.9 Iron deficiency anemia, unspecified; I82.409 Acute embolism and thrombosis of unspecified deep veins of unspecified lower extremity; I51.89 Other ill-defined heart diseases; E78.5 Hyperlipidemia, unspecified; E78.1 Pure hyperglyceridemia; E78.00 Pure hypercholesterolemia, unspecified; Z86.73 Personal history of transient ischemic attack (TIA), and cerebral infarction without residual deficits
CPT/HCPCS: 82043; 82570; 96127; 96372; 99212; J3420

== ENCOUNTER 2025-05-03 10:55 | Outpatient (REF) | payer MEDICARE, SELFPAY ==
--- NOTE | ~2025-05-03 | MM_ITS ---
EXAMINATION: DXA BONE DENSITY AXIAL HISTORY: M81.0 - Age-related osteoporosis without current pathological fracture TECHNIQUE: [employer] Dual energy absorptiometry (DEXA) of the lumbar spine, total left hip, and femoral neck was performed. COMPARISON: There are no prior studies for comparison. FINDINGS: The bone mineral density of the lumbar spine is 1.004 g/cm2, corresponding to a T-score of -1.4, and a Z-score of -0.3. This is indicative of osteopenia. The bone mineral density of the left total hip is 0.683 g/cm2, corresponding to a T-score of -2.6, and a Z-score of -1.4. This is indicative of osteoporosis. The bone mineral density of the left femoral neck is 0.705 g/cm2, corresponding to a T-score of -2.4, and a Z-score of -1.0. This is indicative of osteopenia. FRACTURE RISK: The FRAX index suggests a risk of major osteoporotic fracture of 14.9%, and of hip fracture 4.0%. MM/XR DEXA axial skeleton IMPRESSION: Based on bone mineral density, and according to World Health Organization (WHO) criteria, the diagnosis is consistent with osteoporosis. Statistically, 68% of repeat scans fall within 1 SD (+/- 0.010 g/cm2 for AP spine L1-L4) and 1 SD (+/- 0.012 g/cm2 for femur total) FRAX is a trademark of the [employer] [place] [employer] Met[employer] Bone Disease, a World Health Organization (WHO) Collaborating Center. Electronically signed by: James Majano MD 05/03/2025 11:21 AM [facility]
== END 2025-05-03 10:56 | disposition home or self-care (01) ==
LOC: HO.MAMMO 10:55
PROVIDERS: PCP Physician Assistant Medical; Visit Provider Physician Assistant Medical
DX: M81.0 Age-related osteoporosis without current pathological fracture (principal)
CPT/HCPCS: 77080

== ENCOUNTER → 2025-05-03 11:00 | Outpatient (BNV) | payer MEDICARE, SELFPAY | PROVIDERS: PCP Physician Assistant Medical; Visit Provider Radiology Diagnostic Radiology | DX: E28.39 Other primary ovarian failure (principal) | CPT/HCPCS: 77080 ==